=== PATIENT | male | born 1980 | race Caucasian/White ===

== ENCOUNTER 2020-04-25 12:00 | Observation (INO) ==
[2020-04-25 14:44] LABS: ALT 30 U/L (7-52); Albumin 4.3 g/dL (3.2-5.2); Albumin/Globulin Ratio 1.5 (1-3); Alkaline Phosphatase 118 U/L (34-104); BUN/Creatinine Ratio 16.7 (8-20); Blood Urea Nitrogen 10 mg/dL (6-24); C Reactive Protein 20.44 mg/L (<8.01); CO2 Carbon Dioxide 24 mmol/L (22-32); Calcium 9.4 mg/dL (8.6-10.3); Chloride 102 mmol/L (101-111); EGFR African American 181.5 (>60); Globulin 2.9 g/dL (2-4); Glucose 85 mg/dL (70-100); Sodium 133 mmol/L (135-145); Total Protein 7.2 g/dL (6.4-8.9)
[2020-04-25 14:53] LABS: Anion Gap 7 mmol/L (2-11)
[2020-04-25 15:06] LABS: ABS Eosinophils 0.3 10^3/ul (0-0.6); ABS Lymphocytes 2.6 10^3/ul (1.0-4.8); ABS Neutrophils 7.5 10^3/ul (1.5-7.7); Eosinophil % 2.4 %; Hematocrit 39 % (42-52); Hemoglobin 13.6 g/dL (14.0-18.0); Lymphocyte % 22.9 %; Mean Corpuscular HGB Conc 35 g/dL (31-36); Mean Corpuscular Hemoglobin 31 pg (27-31); Mean Corpuscular Volume 90 fL (80-94); Nucleated Red Blood Cells % 0.1; Red Blood Count 4.37 10^6 /uL (4.18-5.48); Red Cell Distribution Width 13 % (10-15); White Blood Count 11.4 10^3/uL (3.5-10.8)
[2020-04-25 16:20] LABS: Urine Appearance Clear; Urine Bilirubin Negative (Negative); Urine Blood Negative (Negative); Urine Color Yellow; Urine Glucose Negative (Negative); Urine Ketones Negative (Negative); Urine Nitrite Negative (Negative); Urine Protein Negative (Negative); Urine Specific Gravity 1.014 (1.010-1.030); Urine Urobilinogen Negative (Negative)
[2020-04-25 16:42] LABS: Urine Benzodiazepine Screen None Detected (None Detect); Urine Cannabinoids Screen Presumptive Positive (None Detect); Urine Opiates Screen Presumptive Positive (None Detect)
[2020-04-25] MEDS ORDERED: Ondansetron 4 mg VIAL 2 MG/ML 2 ml VIAL IV PRN (17:29)
[2020-04-25] MEDS ORDERED: Morphine 2 MG/ML SYRINGE IV PRN (18:11)
[2020-04-25] MEDS ORDERED: HYDROmorphone 1 MG/1 ML SYRINGE IV SLOW PU ONE (18:46)
[2020-04-25] MEDS ORDERED: Enoxaparin 40 MG/0.4 ML SYR SUBCUT SCH (20:00)
[2020-04-25] MEDS ORDERED: Enoxaparin 40 MG/0.4 ML SYR SUBCUT ONE (23:00)
[2020-04-25 23:09] VITALS: BP 126/66
[2020-04-26] MEDS ORDERED: NS 0.9% 1000 ml BAG 1,000 ML IV SCH (06:00)
[2020-04-26] MEDS ORDERED: Buffered Lidocaine 1% SYRIN 1 ml INTRADERM ONE (06:00)
[2020-04-26] MEDS ORDERED: Lactated Ringers 1000 ml BAG 1,000 ML IV SCH (06:00)
[2020-04-26] MEDS ORDERED: METHADONE 10 MG/ML PO SCH (09:00)
== END 2020-04-26 01:10 | disposition left against medical advice (07) ==
LOC: ED 12:00 → SSU 12:00
PROVIDERS: ADMIT Hospitalist; ATTEND Internal Medicine

== ENCOUNTER 2020-04-28 08:58 | Observation (INO) ==
[2020-04-28] MEDS ORDERED: Buffered Lidocaine 1% SYRIN 1 ml INTRADERM ONE (09:41)
[2020-04-28] MEDS ORDERED: Methadone ORALSYR CONC LIQ 10 MG/ML PO ONE (10:30)
[2020-04-28] MEDS ORDERED: ceFAZolin 2 GM PREMIX 2 GM/50 ML BAG ONE (11:14)
[2020-04-28] MEDS ORDERED: Lidocaine 2% PF 5 ML VIAL ONE ×2 (11:19→11:38)
[2020-04-28] MEDS ORDERED: Morphine PF AMP (0.5MG/ML) 5 MG/10 ML AMP ONE (11:38)
[2020-04-28] MEDS ORDERED: Propofol 10 MG/ML 20 ML BTL ONE (12:42)
[2020-04-28] MEDS ORDERED: Dexmedetomidine 200 mcg/2 ml 2 ml VIAL (200 mcg) ONE (12:55)
[2020-04-28] MEDS ORDERED: Ondansetron 4 mg VIAL 2 MG/ML 2 ml VIAL IV PRN ×2 (14:15→14:51)
[2020-04-28] MEDS ORDERED: Naloxone 0.4 mg VIAL 0.4 mg/ml 1 ml VIAL IV PRN (14:15)
[2020-04-28] MEDS ORDERED: diPHENhydraMINE IV 50 MG/ML 1 ml VIAL (BENADRYL) IV PRN (14:51)
[2020-04-28] MEDS ORDERED: Lactulose 30 ml UDC PO PRN (14:51)
[2020-04-28] MEDS ORDERED: diPHENhydraMINE 25 mg TAB PO PRN (14:51)
[2020-04-28] MEDS ORDERED: Ondansetron 4 mg VIAL 2 MG/ML 2 ml VIAL ONE (14:51)
[2020-04-28] MEDS ORDERED: Ondansetron ODT 4 mg TAB 4 MG TAB PO PRN (14:51)
[2020-04-28] MEDS ORDERED: Magnesium Hydroxide LIQ 30 ML UDC PO PRN (14:51)
[2020-04-28] MEDS: HYDROmorphone 1 MG/1 ML SYRINGE IV PRN ×5 (15:00→15:26)
[2020-04-28] MEDS ORDERED: Lactated Ringers 1000 ml BAG 1,000 ML IV SCH (15:00)
[2020-04-28] MEDS ORDERED: HYDROmorphone 1 MG/1 ML SYRINGE ONE (15:00)
[2020-04-28] MEDS ORDERED: Ketamine HCL 50 mg/ml 10 ml VIAL (500 MG) ONE (15:40)
[2020-04-28] MEDS: Morphine 2 MG/ML SYRINGE IV PRN ×3 (16:40→23:01)
[2020-04-28] MEDS ORDERED: Naloxone 0.4 mg VIAL 0.4 mg/ml 1 ml VIAL IV PUSH PRN (17:26)
[2020-04-28] MEDS ORDERED: Enoxaparin 30 MG/0.3 ML SYR SUBCUT ONE (18:00)
[2020-04-28] MEDS: ceFAZolin 1 GM ADVAN 1 GM in NS 0.9% 50 ML 50 ML IVPB SCH (20:31)
[2020-04-28] MEDS: Magnesium Hydroxide LIQ 30 ML UDC PO SCH (21:08)
[2020-04-28] MEDS: Morphine 10 MG/ML VIAL (1 ml) IV PRN (21:22)
[2020-04-28] MEDS ORDERED: diPHENhydraMINE IV 50 MG/ML 1 ml VIAL (BENADRYL) IV ONE (21:36)
[2020-04-28] MEDS: Enoxaparin 60 MG/0.6 ML SYR SUBCUT ONE ×2 (21:58→22:04)
[2020-04-29] MEDS: Morphine 10 MG/ML VIAL (1 ml) IV PRN ×3 (02:09→12:57)
[2020-04-29] MEDS: ceFAZolin 1 GM ADVAN 1 GM in NS 0.9% 50 ML 50 ML IVPB SCH ×2 (04:44→13:36)
[2020-04-29] MEDS: Morphine 2 MG/ML SYRINGE IV PRN ×2 (04:56→10:50)
[2020-04-29 07:52] VITALS: BP 148/81
[2020-04-29] MEDS: Magnesium Hydroxide LIQ 30 ML UDC PO SCH (08:05)
[2020-04-29] MEDS ORDERED: Methadone ORALSYR CONC LIQ 10 MG/ML PO SCH (09:00)
[2020-04-29] MEDS ORDERED: Methadone ORALSYR CONC LIQ 10 MG/ML PO PRN (14:00)
[2020-04-29] MEDS ORDERED: HYDROmorphone 1 MG/1 ML SYRINGE IV SLOW PU ONE (14:32)
[2020-04-29] MEDS ORDERED: HYDROmorphone 1 MG/1 ML SYRINGE ONE (14:38)
== END 2020-04-29 17:20 | disposition home or self-care (01) ==
LOC: SSU 08:58 → OR 08:58
PROVIDERS: ADMIT Internal Medicine; ATTEND Orthopaedic Surgery Hand Surgery